=== PATIENT | female | born 1975 | race Caucasian/White ===

== ENCOUNTER 2016-08-25 10:44 | Emergency (ER) | payer OTHER ==
[~2016-08-25] VITALS: Ht 157.5 cm; Wt 67.8 kg
[~2016-08-25 10:44] MED LIST: Lortab 7.5/500 PO; NORCO 5/3251 TABLET PO
[2016-08-25] MEDS ORDERED: SYNTHROID100 MCG PO (13:01)
[2016-08-25] MEDS ORDERED: LORAZEPAM1 MG PO (13:01)
[2016-08-25] MEDS ORDERED: AMLODIPINE BESYL5 MG PO (13:02)
[2016-08-25] MEDS ORDERED: HYDROCHLOROTHIA25 MG PO (13:02)
[2016-08-25] MEDS ORDERED: MULTIVITAMIN1 EAC2 PO (13:03)
[2016-08-25] MEDS ORDERED: PROBIOTIC1 EAC1 PO (13:03)
[2016-08-25] MEDS ORDERED: VITAMIN D2000 UNIT PO (13:03)
[2016-08-25 15:55] LABS: EOSINOPHIL (%) 0.8 % (0-5); EOSINOPHIL COUNT 0.1 K/uL (0-0.3); HEMATOCRIT 41.8 % (36.0-46.0); IMMATURE GRANULOCYTE (%) 0.1 % (0.0-0.7); INSTRUMENT ABS NEUTROPHIL CT 5.3 K/uL; LYMPHOCYTE COUNT 2.6 K/uL (1.0-2.8); MCH 29.5 PG (29.0-34.0); MCHC 33.3 G/DL (30.0-36.0); MCV 88.7 FL (83-99); MEAN PLAT.VOLUME 10.6 uM^3 (9.5-12.4); MONOCYTE (%) 4.2 % (3-12); MONOCYTE COUNT 0.4 K/uL (0-0.8); NEUTROPHIL (%) 63.3 % (45-76); NEUTROPHIL COUNT 5.3 K/uL (1.8-6.4); PLATELET COUNT 356 K/uL (156-360); RBC DIS.WIDTH-CV 12.4 % (11.8-14.6); RBC DIS.WIDTH-SD 40.6 % (39-53); RED BLOOD COUNT 4.71 M/uL (3.80-5.20); WHITE BLOOD COUNT 8.4 K/uL (4.1-10.2)
[2016-08-25 16:07] LABS: CHLORIDE 105 mEq/L (99-109); POTASSIUM 3.5 mEq/L (3.7-5.4); SODIUM 139 mEq/L (136-147)
[2016-08-25 16:09] LABS: GLUCOSE 87 mg/dL (70-99)
[2016-08-25 16:11] LABS: ANION GAP 9 MEQ/L (2-14); TOTAL BILIRUBIN 0.4 mg/dL (0.0-1.0)
[2016-08-25 16:13] LABS: ALKALINE PHOSPHATASE 47 IU/L (3-129); GFR ESTIMATE (CALCULATED) > 59 mL/min/
[2016-08-25 16:14] LABS: UREA NITROGEN (BUN) 11 mg/dL (9-23)
[2016-08-25 16:17] LABS: TROP-I INTERPRETATION NEGATIVE; TROPONIN-I < 0.01 ng/mL (0.0-0.30)
[2016-08-25 16:22] LABS: QUANTITATIVE HCG < 4.0 MIU/ML
[2016-08-25 18:00] VITALS: BP 127/87
== END 2016-08-25 18:12 | disposition home or self-care (01) ==
LOC: EME 10:44
PROVIDERS: Emergency Medicine
DX: R00.2 Palpitations (principal); R42 Dizziness and giddiness; F41.9 Anxiety disorder, unspecified; E03.9 Hypothyroidism, unspecified; F17.200 Nicotine dependence, unspecified, uncomplicated
CPT/HCPCS: 71020; 80053; 83735; 84484; 84702; 85025; 93005; 99281; 99285